=== PATIENT | female | born 1995 | race Caucasian/White ===

== ENCOUNTER 2022-04-05 04:41 | Inpatient (IN) | payer BC ==
[2022-04-05 05:07] VITALS: BMI 27.6
[2022-04-05] MEDS ORDERED: Carboprost 250 MCG/ML AMP IM PRN (05:49)
[2022-04-05] MEDS ORDERED: Ondansetron PF 4 MG/2 ML Vial IVP PRN ×3 (05:49→20:52)
[2022-04-05] MEDS ORDERED: Butorphanol Tartrate 1 MG/ML VIAL SLOW IVP PRN (05:49)
[2022-04-05] MEDS ORDERED: Diphenoxylate HCl/Atropine Tablet PO PRN (05:49)
[2022-04-05] MEDS ORDERED: Promethazine HCl 25 MG/ML VIAL IM PRN ×3 (05:49→20:52)
[2022-04-05] MEDS ORDERED: Methylergonovine 0.2 MG/ML VIAL IM PRN (05:49)
[2022-04-05] MEDS ORDERED: Lidocaine 1% (PF) 30 ML VIAL SC PRN (05:49)
[2022-04-05] MEDS ORDERED: hydrALAZINE 20 MG/ML VIAL SLOW IVP PRN ×2 (05:49→20:52)
[2022-04-05] MEDS ORDERED: Misoprostol 200 MCG TAB PR PRN (05:49)
[2022-04-05] MEDS ORDERED: Bupivacaine 0.25% HCL 30 ML VIAL ONE (06:00)
[2022-04-05] MEDS ORDERED: Lactated Ringer's 1,000 ML IV SCH (06:00)
[2022-04-05] MEDS ORDERED: NS w/ Oxytocin 30 units 500 ML IV SCH ×3 (06:00→20:52)
[2022-04-05 06:48] LABS: Hemoglobin 11.8 g/dL (12.0-15.5); Mean Corpuscular Hemoglobin 32.6 pg (27.0-33.0); Mean Corpuscular Volume 95.9 fl (81.6-98.3); Mean Platelet Volume 12.1 fl (7.4-10.4); Platelet Count 210 10x3/uL (150-450); RBC Distribution Width 13.8 % (11.5-14.5); Red Blood Cell (RBC) Count 3.62 10x6/uL (3.90-5.03); White Blood Cell (WBC) Count 11.4 10x3/uL (3.5-10.5)
[2022-04-05 07:14] LABS: Hep B Surf Ag Non-Reactive S/CO (NonReactive)
[2022-04-05 07:15] LABS: Syphilis Antibody Nonreactive (Nonreactive); Syphilis Antibody Index 0.03 S/CO (<1.00 Non-Reactive)
[2022-04-05 07:22] LABS: HBSAg Index 0.17 S/CO (0-0.99)
[2022-04-05 09:50] LABS: SARS-CoV-2 NAA Rapid Test Not Detected (NotDetected)
[2022-04-05] MEDS ORDERED: Fentanyl 2 mcg/Bup 0.1% Cadd 100 ML ONE (12:48)
[2022-04-05] MEDS ORDERED: diphenhydrAMINE 50 MG/ML VIAL IVP PRN (13:23)
[2022-04-05] MEDS ORDERED: Moisturizing Cream (Eucerin) 113 GM JAR TOP PRN (13:23)
[2022-04-05] MEDS ORDERED: ePHEDrine Sulfate 50 MG/10 ML VIAL SLOW IVP PRN (13:23)
[2022-04-05] MEDS ORDERED: Acetaminophen 325 MG TAB PO PRN (13:23)
[2022-04-05] MEDS ORDERED: Naloxone HCl 0.4 mg/ml Vial IVP PRN ×2 (13:23)
[2022-04-05] MEDS ORDERED: Communication Order-Pharmacy FS SCH (13:30)
[2022-04-05] MEDS ORDERED: Fentanyl 2 mcg/Bupivacaine 0.1% Cassette 100 ML EPIDURAL SCH (13:30)
[2022-04-05] MEDS ORDERED: Lactated Ringer's 500 ML IV PRN (13:56)
[2022-04-05] MEDS ORDERED: Boostrix 0.5 ML (Tdap) VIAL IM ONE (20:52)
[2022-04-05] MEDS ORDERED: Lanolin Ointment 7 GM TUBE TOP PRN (20:52)
[2022-04-05] MEDS ORDERED: Zolpidem Tartrate 5 MG TAB PO PRN (20:52)
[2022-04-05] MEDS ORDERED: Milk Of Magnesia 30 ML UDCUP PO PRN (20:52)
[2022-04-05] MEDS ORDERED: Preparation H Ointment 28 GM TUBE PR PRN (20:52)
[2022-04-05] MEDS ORDERED: HYDROcodone/Acetaminophen 5/325 mg Tablet PO PRN ×2 (20:52)
[2022-04-05] MEDS ORDERED: diphenhydrAMINE 25 MG CAP PO PRN (20:52)
[2022-04-05] MEDS ORDERED: Bisacodyl 10 MG SUPP PR PRN (20:52)
[2022-04-05] MEDS: Docusate 100 MG CAP PO SCH (22:19)
[2022-04-05] MEDS: Ibuprofen 800 MG TAB PO SCH (22:19)
[2022-04-06] MEDS: Ibuprofen 800 MG TAB PO SCH ×3 (05:14→20:04)
[2022-04-06] MEDS: Docusate 100 MG CAP PO SCH ×2 (08:43→20:05)
[2022-04-06] MEDS: Prenatal Vitamin 1 TAB PO SCH (08:43)
[2022-04-07] MEDS: Ibuprofen 800 MG TAB PO SCH (06:32)
[2022-04-07] MEDS: Docusate 100 MG CAP PO SCH (08:43)
[2022-04-07] MEDS: Prenatal Vitamin 1 TAB PO SCH (08:43)
[2022-04-07 08:46] VITALS: BP 119/74; TEMP 98.1
== END 2022-04-07 11:25 | disposition home or self-care (01) | DRG 807 ==
LOC: CSHLD/OP 04:41 → CSHLD 10:13 → CSHPP 21:55
PROVIDERS: ADMIT Obstetrics & Gynecology; ATTEND Obstetrics & Gynecology
PROC: 10E0XZZ Delivery of Products of Conception, External Approach (ICD-10-PCS; principal; 2022-04-05)
PROC: 0KQM0ZZ Repair Perineum Muscle, Open Approach (ICD-10-PCS; 2022-04-05)
DX: O76 Abnormality in fetal heart rate and rhythm complicating labor and delivery (principal); Z37.0 Single live birth; Z3A.38 38 weeks gestation of pregnancy; Z20.822 Contact with and (suspected) exposure to COVID-19; Z88.1 Allergy status to other antibiotic agents; O70.1 Second degree perineal laceration during delivery; O99.893 Other specified diseases and conditions complicating puerperium; R00.1 Bradycardia, unspecified
CPT/HCPCS: 36415; 51702; 85027; 86780; 86850; 86900; 86901; 87340; 93005; 93010; 99285; J0595; J2590; S0020; U0002

== ENCOUNTER 2024-10-13 14:12 | Inpatient (IN) | payer BC ==
[2024-10-13] MEDS: Lactated Ringer's 1,000 ML IV SCH (15:08)
[2024-10-13] MEDS: hydrALAZINE 20 MG/ML VIAL SLOW IVP PRN (15:09)
[2024-10-13] MEDS ORDERED: Calcium Gluc 4.6 MEQ/10 ML (100 MG/ML) SLOW IVP PRN (15:42)
[2024-10-13] MEDS ORDERED: Promethazine HCl 25 MG/ML VIAL IM PRN (15:42)
[2024-10-13] MEDS ORDERED: fentaNYL 50 mcg/mL 1 mL Vial SLOW IVP PRN (15:42)
[2024-10-13] MEDS ORDERED: Labetalol HCl 100 MG/20 ML VIAL SLOW IVP PRN ×2 (15:42)
[2024-10-13] MEDS ORDERED: Lorazepam 2 MG/ML VIAL SLOW IVP PRN (15:42)
[2024-10-13] MEDS ORDERED: hydrALAZINE 20 MG/ML VIAL SLOW IVP PRN ×2 (15:42)
[2024-10-13] MEDS ORDERED: HYDROcodone/Acetaminophen 5/325 mg Tablet PO PRN ×2 (15:42)
[2024-10-13] MEDS ORDERED: Lidocaine 1% (PF) 30 ML VIAL SC PRN (15:42)
[2024-10-13] MEDS ORDERED: Ondansetron PF 4 MG/2 ML Vial IVP PRN (15:42)
[2024-10-13] MEDS ORDERED: Ibuprofen 800 MG TAB PO PRN (15:42)
[2024-10-13] MEDS ORDERED: Oxytocin 30 units/NS 500 ML 500 ML IV SCH (15:45)
[2024-10-13] MEDS: Magnesium Sulfate 20 gm/500 ml 20 GM/500 ML BAG IVPB SCH (15:51)
[2024-10-13 16:25] VITALS: BMI 28.6
[2024-10-13] MEDS: Penicillin G Potassium 5 MILL.UNITS in Sodium Chloride 0.9% 100 ML IVPB SCH (16:56)
[2024-10-13 17:22] LABS: Hematocrit 31.2 % (34.9-44.5); Mean Corpuscular HGB CONC 32.1 g/dL (32.0-36.0); Mean Corpuscular Hemoglobin 29.2 pg (27.0-33.0); Mean Platelet Volume 13.1 fL (7.4-10.4); Platelet Count 196 10x3/uL (150-450); RBC Distribution Width 17.9 % (11.5-14.5); Red Blood Cell (RBC) Count 3.43 10x6/uL (3.90-5.03); White Blood Cell (WBC) Count 6.9 10x3/uL (3.5-10.5)
[2024-10-13 17:53] LABS: HBsAg Index 0.21 S/CO (0-0.99); Hep B Surf Ag - L&D Non-Reactive S/CO (NonReactive); Syphilis Antibody Nonreactive (Nonreactive); Syphilis Antibody Index 0.03 S/CO (<1.00 Non-Reactive)
[2024-10-13 18:05] LABS: Creatinine, Urine 49.42 mg/dL (47-110)
[2024-10-13 18:07] LABS: ALT (SGPT) 20 U/L (8-55); AST (SGOT) 28 U/L (5-34); Albumin 2.7 g/dL (3.5-5.0); Alkaline Phosphatase 177 U/L (40-110); Anion Gap 15 mmol/L (10-20); BUN (Urea Nitrogen) 12 mg/dL (7.0-18.7); Bilirubin, Total 0.2 mg/dL (0.2-1.2); Calc. Creatinine Clearance 141 mL/min (70-130); Calcium 8.9 mg/dL (7.8-10.44); Carbon Dioxide 19 mmol/L (22-29); Chloride 107 mmol/L (98-107); Estimated GFR 107; Glucose 77 mg/dL (70-105); Potassium 4.4 mmol/L (3.5-5.1); Protein, Total 5.7 g/dL (6.0-8.3); Sodium 137 mmol/L (136-145)
[2024-10-13] MEDS: Magnesium Sulfate 20 gm/500 ml 20 GM/500 ML BAG ONE (19:20)
[2024-10-13] MEDS: hydrALAZINE 20 MG/ML VIAL ONE (19:20)
[2024-10-13] MEDS: Penicillin G Potassium 5 MILL.UNITS VIAL ONE (19:20)
[2024-10-13] MEDS: Oxytocin 30 units/NS 500 ML 500 ML IV SCH (20:40)
[2024-10-13] MEDS: Penicillin G 2.5 MILL.units 2.5 MILL.UNITS in Premix 1 BAG IVPB SCH (21:00)
[2024-10-13] MEDS: fentaNYL/Ropivacaine Epidural 100 ML ONE (23:13)
[2024-10-14] MEDS ORDERED: Naloxone HCl 0.4 mg/ml Vial IVP PRN ×2 (00:01)
[2024-10-14] MEDS ORDERED: Moisturizing Cream (Eucerin) 113 GM JAR TOP PRN (00:01)
[2024-10-14] MEDS ORDERED: Lactated Ringer's 500 ML IV PRN (00:01)
[2024-10-14] MEDS ORDERED: Acetaminophen 325 MG TAB PO PRN (00:01)
[2024-10-14] MEDS ORDERED: Ondansetron PF 4 MG/2 ML Vial IVP PRN ×2 (00:01→03:04)
[2024-10-14] MEDS ORDERED: Promethazine HCl 25 MG/ML VIAL IM PRN ×2 (00:01→03:04)
[2024-10-14] MEDS ORDERED: diphenhydrAMINE 50 MG/ML VIAL IVP PRN (00:01)
[2024-10-14] MEDS ORDERED: ePHEDrine Sulfate 50 MG/10 ML VIAL SLOW IVP PRN (00:01)
[2024-10-14] MEDS ORDERED: Communication Order-Pharmacy FS SCH (00:15)
[2024-10-14] MEDS ORDERED: fentaNYL 2 mcg/Ropivacaine 0.2% Epidural 100 ML CADD EPIDURAL SCH (00:15)
[2024-10-14] MEDS ORDERED: Benzocaine-Menthol 82.5 ML CAN TOP PRN (03:04)
[2024-10-14] MEDS ORDERED: traMADol HCl 50 MG TAB PO PRN (03:04)
[2024-10-14] MEDS ORDERED: Bisacodyl 10 MG SUPP PR PRN (03:04)
[2024-10-14] MEDS ORDERED: hydrALAZINE 20 MG/ML VIAL SLOW IVP PRN (03:04)
[2024-10-14] MEDS ORDERED: Milk Of Magnesia 30 ML UDCUP PO PRN (03:04)
[2024-10-14] MEDS ORDERED: Preparation H Ointment 28 GM TUBE PR PRN (03:04)
[2024-10-14] MEDS ORDERED: Lanolin Ointment 7 GM TUBE TOP PRN (03:04)
[2024-10-14] MEDS: Boostrix 0.5 ML (Tdap) VIAL (>/=7 yrs of age) IM ONE (04:07)
[2024-10-14] MEDS ORDERED: Ferrous Sulfate 325 MG TAB PO SCH (08:00)
[2024-10-14] MEDS: Ibuprofen 800 MG TAB PO SCH (08:09)
[2024-10-14] MEDS: Docusate 100 MG CAP PO SCH (08:09)
[2024-10-14] MEDS: hydrALAZINE 20 MG/ML VIAL SLOW IVP PRN (20:35)
[2024-10-14] MEDS: NIFEdipine XL 30 MG ER.TAB PO SCH (21:12)
[2024-10-15] MEDS ORDERED: HYDROcodone/Acetaminophen 5/325 mg Tablet PO PRN ×2 (01:39)
[2024-10-15] MEDS ORDERED: Milk Of Magnesia 30 ML UDCUP PO PRN (01:39)
[2024-10-15] MEDS ORDERED: Benzocaine-Menthol 82.5 ML CAN TOP PRN (01:39)
[2024-10-15] MEDS ORDERED: hydrALAZINE 20 MG/ML VIAL SLOW IVP PRN (01:39)
[2024-10-15] MEDS ORDERED: Boostrix 0.5 ML (Tdap) VIAL (>/=7 yrs of age) IM ONE (01:39)
[2024-10-15] MEDS ORDERED: Bisacodyl 10 MG SUPP PR PRN (01:39)
[2024-10-15] MEDS ORDERED: Ibuprofen 800 MG TAB PO SCH (02:00)
[2024-10-15] MEDS ORDERED: Ferrous Sulfate 325 MG TAB PO SCH (02:15)
[2024-10-15] MEDS ORDERED: Docusate 100 MG CAP PO SCH (02:15)
[2024-10-15] MEDS: Ibuprofen 800 MG TAB PO SCH (05:23)
[2024-10-15 08:07] VITALS: BP 145/80; TEMP 98.1
[2024-10-15] MEDS: Docusate 100 MG CAP PO SCH (08:58)
[2024-10-15] MEDS: NIFEdipine XL 30 MG ER.TAB PO SCH (08:58)
[2024-10-15] MEDS: Prenatal Vitamin 1 TAB PO SCH (08:58)
[2024-10-15] MEDS: Ferrous Sulfate 325 MG TAB PO SCH (08:58)
== END 2024-10-15 12:50 | disposition home or self-care (01) | DRG 807 ==
LOC: CSHLD/OP 14:12 → CSHLD 15:37 → CSHPP 10-15 00:50
PROVIDERS: ADMIT Obstetrics & Gynecology; ATTEND Obstetrics & Gynecology
PROC: 10E0XZZ Delivery of Products of Conception, External Approach (ICD-10-PCS; principal; 2024-10-14)
PROC: 0HQ9XZZ Repair Perineum Skin, External Approach (ICD-10-PCS; 2024-10-14)
PROC: 10907ZC Drainage of Amniotic Fluid, Therapeutic from Products of Conception, Via Natural or Artificial Opening (ICD-10-PCS; 2024-10-14)
DX: O14.14 Severe pre-eclampsia complicating childbirth (principal); Z37.0 Single live birth; Z3A.37 37 weeks gestation of pregnancy; O99.02 Anemia complicating childbirth; D64.9 Anemia, unspecified; O99.824 Streptococcus B carrier state complicating childbirth; O71.7 Obstetric hematoma of pelvis
CPT/HCPCS: 51702; 80053; 82570; 84156; 86780; 86850; 86900; 86901; 87340; 99285; J0360; J2540; J2590; J3475; J7120